=== PATIENT | female | born 1970 | race Caucasian/White ===

== ENCOUNTER 2017-11-08 11:07 | Observation (INO) | payer BC ==
[~2017-11-08] VITALS: Ht 160 cm; Wt 75.0 kg
[2017-11-08] VITALS (7 sets, daily range): BP systolic 95–170; BP diastolic 54–100; PULSE 68–82; RESP 16–20; TEMP 98–98.8; O2SAT 94–100
[~2017-11-08 11:07] MED LIST: CLIN150 PO; PRED10 PO; TRIA.1%T TOP
--- NOTE | 2017-11-08 11:27 | PD ---
HPI Chief Complaint: Syncope/Near-Syncope Time Seen by Provider: 11:24 Travel History International Travel<30 days: No Contact w/Intl Traveler<30days: No Traveled to known affect area: No History of Present Illness HPI 47-year-old female presents the emergency department with reported syncopal episode last evening witnessed by her boyfriend in the patient's home. She states she was speaking to him in the kitchen and reportedly passed out cold, for 2 minutes. Patient states no reported seizure activity. Patient does have history of left-sided chest and shoulder pain over the past week intermittently. Patient does have a history of CAD, with catheterization performed approximately 10 years ago, without stent placement and question of Prinzmetal's syndrome. Patient states she did hit her head and has a laceration to the right posterior scalp. The patient has a mild headache and has had some headaches over the past week. Patient denies drug or alcohol use. She currently feels normal. 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 She denies chest pain currently. She has no known drug allergies. [facility] Past Medical History Cardiovascular Problems: Yes (ANG[place]) Social History Alcohol Use: No Tobacco Use: No Allergies-Medications (Allergen,Severity, Reaction): Coded Allergies: No Known Allergies (Unverified Adverse Reaction, Unknown, 11/08/17) Reported Meds & Prescriptions Reported Meds & Active Scripts Active No Active Prescriptions or Reported Medications Review of Systems Except as stated in HPI: all other systems reviewed are Neg General / Constitutional: No: Fever Eyes: No: Visual changes HENT: No: Headaches Cardiovascular: No: Chest Pain or Discomfort Respiratory: No: Shortness of Breath Gastrointestinal: No: Abdominal Pain Genitourinary: No: Dysuria Musculoskeletal: No: Pain Skin: No Rash Neurologic: Positive: Syncope, Headache, No: Weakness Psychiatric: No: Depression Endocrine: No: Polydipsia Hematologic/Lymphatic: No: Easy Bruising Physical Exam Narrative GENERAL: Patient is ambulatory and in no obvious distress. SKIN: Warm and dry. Normal color. Normal Turgor. Patient is a 2 cm linear laceration to the right parietal region HEAD: Normocephalic. She has tenderness on the right parietal region adjacent to the laceration. There is moderate swelling in this area. EYES: Pupils equal and round. No scleral icterus. No injection or drainage. ENT: No nasal bleeding or discharge. Mucous membranes pink and moist. No dental injury. Pharynx is clear. Airway is patent. TMs are clear bilaterally. NECK: Trachea midline. No bony tenderness or step-off. Range of motion is full and nontender. CARDIOVASCULAR: Regular rate and rhythm. RESPIRATORY: No accessory muscle use. Clear to auscultation. Breath sounds equal bilaterally. GASTROINTESTINAL: Abdomen soft, non-tender, nondistended. Hepatic and splenic margins not palpable. MUSCULOSKELETAL: Extremities without clubbing, cyanosis, or edema. No obvious deformities. NEUROLOGICAL: Awake and alert. No obvious cranial nerve deficits. Motor grossly within normal limits. Five out of 5 muscle strength in the arms and legs. Normal speech. PSYCHIATRIC: Appropriate mood and affect; insight and judgment normal. Data Data Last Documented VS Vital Signs Date Time Temp Pulse Resp B/P (MAP) Pulse Ox O2 Delivery O2 Flow Rate FiO2 11/08/17 11:49 81 19 133/93 (106) 84 19 137/75 (95) 97 20 139/83 (101) 11/08/17 11:29 98 Room Air 11/08/17 11:13 98.6 Orders Orders Electrocardiogram (11/08/17 11:21) Complete Blood Count With Diff (11/08/17 11:21) Comprehensive Metabolic Panel (11/08/17 11:21) Magnesium (Mg) (11/08/17 11:21) Ckmb (Isoenzyme) Profile (11/08/17 11:21) Troponin I (11/08/17 11:21) Act Partial Throm Time (Ptt) (11/08/17 11:21) Prothrombin Time / Inr (Pt) (11/08/17 11:21) Urinalysis - C+S If Indicated (11/08/17 11:21) Chest, Single Ap (11/08/17 11:21) Ecg Monitoring (11/08/17 11:21) Iv Access Insert/Monitor (11/08/17 11:21) Oximetry (11/08/17 11:21) Meclizine (Antivert) (11/08/17 11:30) Ondansetron Inj (Zofran Inj) (11/08/17 11:30) Sodium Chloride 0.9% Flush (Ns Flush) (11/08/17 11:30) Orthostatic Vital Signs (11/08/17 11:21) Ct Brain W/O Iv Contrast(Rout) (11/08/17 11:21) Drug Screen, Random Urine (11/08/17 11:21) Alcohol (Ethanol) (11/08/17 11:21) Aspirin Chew (Aspirin Chew) (11/08/17 12:45) Nitroglycerin 2% Oint (Nitroglycerin 2% (11/08/17 12:45) Morphine Inj (Morphine Inj) (11/08/17 12:45) CKMB (11/08/17 11:46) CKMB% (11/08/17 11:46) Admit Order (Ed Use Only) (11/08/17 13:24) Labs Laboratory Tests Test 11/08/17 11:46 White Blood Count 8.3 TH/MM3 Red Blood Count 4.17 MIL/MM3 Hemoglobin 13.6 GM/DL Hematocrit 40.1 % Mean Corpuscular Volume 96.2 FL Mean Corpuscular Hemoglobin 32.7 PG Mean Corpuscular Hemoglobin Concent 34.0 % Red Cell Distribution Width 13.0 % Platelet Count 254 TH/MM3 Mean Platelet Volume 8.8 FL Neutrophils (%) (Auto) 55.7 % Lymphocytes (%) (Auto) 38.3 % Monocytes (%) (Auto) 5.0 % Eosinophils (%) (Auto) 0.6 % Basophils (%) (Auto) 0.4 % Neutrophils # (Auto) 4.6 TH/MM3 Lymphocytes # (Auto) 3.2 TH/MM3 Monocytes # (Auto) 0.4 TH/MM3 Eosinophils # (Auto) 0.1 TH/MM3 Basophils # (Auto) 0.0 TH/MM3 CBC Comment DIFF FINAL Differential Comment Prothrombin Time 11.4 SEC Prothromb Time International Ratio 1.1 RATIO Activated Partial Thromboplast Time 25.4 SEC Blood Urea Nitrogen 13 MG/DL Creatinine 0.88 MG/DL Random Glucose 142 MG/DL Total Protein 7.3 GM/DL Albumin 4.0 GM/DL Calcium Level 9.6 MG/DL Magnesium Level 2.3 MG/DL Alkaline Phosphatase 130 U/L Aspartate Amino Transf (AST/SGOT) 18 U/L Alanine Aminotransferase (ALT/SGPT) 12 U/L Total Bilirubin 0.4 MG/DL Sodium Level 139 MEQ/L Potassium Level 3.5 MEQ/L Chloride Level 104 MEQ/L Carbon Dioxide Level 27.1 MEQ/L Anion Gap 8 MEQ/L Estimat Glomerular Filtration Rate 69 ML/MIN Total Creatine Kinase 307 U/L Creatine Kinase MB 4.1 NG/ML Creatine Kinase MB % 1.3 % Troponin I LESS THAN 0.02 NG/ML Ethyl Alcohol Level LESS THAN 3 MG/DL MDM Medical Decision Making Medical Screen Exam Complete: Yes Emergency Medical Condition: Yes Medical Record Reviewed: Yes Differential Diagnosis Syncopal event. Head contusion. Laceration. Possible seizure. Cardiac syndrome. CA. Narrative Course Patient is currently medically stable at time of exam. CT of the head is ordered as well as chest x-ray. EKG is ordered showing rhythm with apparently old lateral and inferior myocardial infarctions with ranges. This was reviewed with Dr. Marcus. This does not appear acute. Labs are ordered including CBC, CMP, cardiac panel, urinalysis, urine drug screen, and serum alcohol levels. Patient states her chest feels tight, and rates her pain at 6 out of 10. Patient is given 324 mg aspirin by mouth as well as 2 mg morphine IV as well as 1 inch of nitroglycerin paste topically. CT shows no acute process. Scalp laceration is requested not to be repaired by the patient. It shows no signs of bleeding currently. CBC is unremarkable. Coagulation studies are unremarkable. Chemistries show random glucose 142, GFR 69, alkaline phosphatase is elevated at 1:30, creatinine is 307, CK-MB is 4.1, however her first troponin is less than 0.02. Patient states she is pain-free after the above treatment. Urine is still pending but the patient will be admitted to the chest pain center for further evaluation and treatment. Diagnosis Primary Impression: Chest pain at rest Additional Impression: Syncopal episodes Qualified Codes: R55 - Syncope and collapse Admitting Information Admitting Physician Requests: Observation Scripts No Active Prescriptions or Reported Meds Condition: Stable Chris Robison Nov 08, 2017 11:26
[2017-11-08] MEDS ORDERED: SODIUM CHLORIDE 0.9% FLUSH 10 ML FLUSH IVF PRN (11:30)
[2017-11-08] MEDS ORDERED: MECLIZINE HCL 25 MG TAB PO ONE (11:30)
[2017-11-08] MEDS ORDERED: ONDANSETRON HCL 4 MG/2 ML VIAL IVP ONE (11:30)
--- NOTE | 2017-11-08 11:55 | RADRPT ---
EXAM DATE/TIME: 11/08/2017 11:26 [facility] COMPARISON: No previous studies available for comparison. INDICATIONS : Syncopal episode. Patient passed out last night. MEDICAL HISTORY : Hypertension. SURGICAL HISTORY : None. ENCOUNTER: Initial ACUITY: 2 days PAIN SCORE: 0/10 LOCATION: Bilateral chest FINDINGS: A single view of the chest demonstrates the lungs to be symmetrically aerated without evidence of mas s, infiltrate or effusion. The cardiomediastinal contours are unremarkable. Osseous structures are intact. CONCLUSION: Normal examination. Dara Cabral MD on November 08, 2017 at 11:52 Board Certified Radiologist. This report was verified electronically.
--- NOTE | 2017-11-08 12:34 | RADRPT ---
EXAM DATE/TIME: 11/08/2017 12:01 [facility] COMPARISON: No previous studies available for comparison. INDICATIONS : Syncopal episode last night, hit back of head, dizziness. RADIATION DOSE: 35.34 CTDIvol (mGy) MEDICAL HISTORY : Cardiovascular disease. Carcinoma, breast. SURGICAL HISTORY : Coronary artery stent. ENCOUNTER: Initial ACUITY: 1 day PAIN SCALE: 3/10 LOCATION: Bilateral occipital TECHNIQUE: Multiple contiguous axial images were obtained of the head. Using automated exposure control and adj ustment of the mA and/or kV according to patient size, radiation dose was kept as low as reasonably a chievable to obtain optimal diagnostic quality images. DICOM format image data is available electro nically for review and comparison. FINDINGS: CEREBRUM: The ventricles are normal for age. No evidence of midline shift, mass lesion, hemorrhage or acute in farction. No extra-axial fluid collections are seen. POSTERIOR FOSSA: The cerebellum and brainstem are intact. The 4th ventricle is midline. The cerebellopontine angle i s unremarkable. EXTRACRANIAL: The visualized portion of the orbits is intact. SKULL: The calvaria is intact. No evidence of skull fracture. CONCLUSION: No acute disease. Dara Cabral MD on November 08, 2017 at 12:31 Board Certified Radiologist. This report was verified electronically.
[2017-11-08 12:37] LABS: AUTOMATED NEUTROPHIL # 4.6 TH/MM3 (1.8-7.7); BASOPHIL % 0.4 % (0.0-2.0); EOSINOPHIL # 0.1 TH/MM3 (0-0.4); EOSINOPHIL % 0.6 % (0.0-4.0); HEMATOCRIT 40.1 % (35.0-46.0); HEMOGLOBIN 13.6 GM/DL (11.6-15.3); LYMPH % 38.3 % (9.0-44.0); LYMPHOCYTE # 3.2 TH/MM3 (1.0-4.8); MEAN CELL VOLUME 96.2 FL (80.0-100.0); MEAN CORPUSCULAR HEMOGLOBIN 32.7 PG (27.0-34.0); MEAN PLATELET VOLUME 8.8 FL (7.0-11.0); MONOCYTE # 0.4 TH/MM3 (0-0.9); NEUT % 55.7 % (16.0-70.0); PLATELET COUNT 254 TH/MM3 (150-450); RED BLOOD COUNT 4.17 MIL/MM3 (4.00-5.30); WHITE BLOOD COUNT 8.3 TH/MM3 (4.0-11.0)
[2017-11-08 12:44] LABS: INTERNATIONAL NORMALIZED RATIO 1.1 RATIO; PROTHROMBIN TIME - PATIENT 11.4 SEC (9.8-11.6)
[2017-11-08] MEDS ORDERED: ASPIRIN 81 MG CHEW TAB PO ONE (12:45)
[2017-11-08] MEDS ORDERED: MORPHINE SULFATE 2 MG/ML INJ IV PUSH ONE (12:45)
[2017-11-08] MEDS ORDERED: NITROGLYCERIN 2% OINT 1 GM PACKET TOP ONE (12:45)
[2017-11-08 12:50] LABS: AST (GOT) 18 U/L (15-37); BICARBONATE 27.1 MEQ/L (21.0-32.0); BLOOD UREA NITROGEN 13 MG/DL (7-18); CALCIUM 9.6 MG/DL (8.5-10.1); CHLORIDE 104 MEQ/L (98-107); CREATININE 0.88 MG/DL (0.50-1.00); GLOMERULAR FILTRATION RATE 69 ML/MIN (>89); GLUCOSE,RANDOM 142 MG/DL (74-106); MAGNESIUM 2.3 MG/DL (1.5-2.5); SODIUM (NA) 139 MEQ/L (136-145)
[2017-11-08 12:56] LABS: ALKALINE PHOSPHATASE 130 U/L (45-117); ALT (GPT) 12 U/L (10-53); TOTAL BILIRUBIN ADULT 0.4 MG/DL (0.2-1.0); TOTAL PROTEIN 7.3 GM/DL (6.4-8.2); TROPONIN I LESS THAN 0.02 NG/ML (0.02-0.05)
[2017-11-08] MEDS ORDERED: ACETAMINOPHEN 500 MG CPLT PO PRN (13:45)
[2017-11-08] MEDS ORDERED: NITROGLYCERIN 0.4 MG SL 25 TABS/BTL SL PRN (13:45)
[2017-11-08] MEDS ORDERED: ONDANSETRON HCL 4 MG/2 ML VIAL IV PUSH PRN (13:45)
--- NOTE | 2017-11-08 14:27 | HHI.HP ---
HPI Primary Care Physician No Primary Care Physician Chief Complaint Chest pain History of Present Illness 47-year-old female with history of coronary artery disease and Prinzmetal's syndrome presents to ER for further evaluation of syncope episode and chest pain. Onset syncope episode last evening. Reports talking with boyfriend then suddenly "passed out." Reportedly "out for at least 2 minutes." No advance warning prior to syncopal episode. No seizure activity reported. No incontinence. Upon awakening she was aware of her surroundings quickly. No chest pain prior to syncopal episode. No history of seizures. Endorses one similar episode approx. one year ago while laying in bed. Never followed up with a PCP after event due to lack of insurance. Onset of chest pain x1 week. Location substernal. Characterized as "heaviness and tightness." Radiation to left shoulder. Duration "brief, maybe a few minutes." Associated symptoms included mild dyspnea and diaphoresis. No nausea or vomiting. No known precipitating or relieving factors. Reporting daily intermittent chest pain episodes x1 week. Endorsees similar chest pain prior to diagnoses of Prinzmetal's syndrome in 2007. Currently chest pain free. 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 ([place]loria [place]) Review of Systems General: No fatigue,weakness, fever, chills, recent illness, or change in appetite. Has been in her general state of health. HEENT: No ZHANG, no vision changes, no nasal congestion or drainage, no dysphasia CV: As stated above. No current CP or pressure. Occasional palpitations felt to be "regular." No prior chest discomfort since 2007 RESP: No SOB, cough, wheeze, or recent URI. Current smoker. GI: No nausea, vomiting, bowel changes, diarrhea, constipation, pain, distention , melena, or blood in the stool. No unintentional weight gain or weight loss. : No dysuria, urgency, frequency EXT: No lower leg edema, no paraesthesias MS: No discomfort, change in ROM, injury, or recent trauma. NEURO: No history of seizures, change in memory, dizziness, difficulty with balance, or motor/sensory deficits. PSYCH: No anxiety, depression SKIN: No rashes, no concerning lesions (Gloria North) Past Family Social History Allergies: Coded Allergies: No Known Allergies (Unverified Allergy, Unknown, 11/08/17) Past Medical History CAD Reported Medications Reported Meds & Active Scripts Active No Active Prescriptions or Reported Medications Active Ordered Medications Current Medications Medications (Trade) Dose Ordered Sig/Abrahan Route Start Time Stop Time Status Last Admin (NS Flush) 2 ml UNSCH PRN IVF 11/08/17 11:30 (NS Flush) 2 ml BID IV FLUSH 11/08/17 21:00 (Tylenol) 500 mg Q4H PRN PO 11/08/17 13:45 (Zofran Inj) 4 mg Q6H PRN IV PUSH 11/08/17 13:45 (Nitrostat Sl) 0.4 mg Q5M PRN SL 11/08/17 13:45 (Aspirin) 325 mg DAILY PO 11/09/17 09:00 Family History Noncontributory for early onset cardiovascular disease. Social History Known CAD. No known hypertension, hyperlipidemia, or diabetes. Current tobacco user, 1 pack/day. Occasional glass of wine. Denies any illegal drug use. Lives with boyfriend. Works as a store assistant. Past cardiac testing No recent stress testing. Does not follow with sand technician. 2008 Cardiac catheterization ([place], [place]) Reports mild blockage not large enough for intervention, however reports carrying around "a card with a coil on it" for awhile. Diagnoses with Prinzmetal's syndrome 2008. (Gloria North) Physical Exam Vital Signs Vital Signs Date Time Temp Pulse Resp B/P (MAP) Pulse Ox O2 Delivery O2 Flow Rate FiO2 11/08/17 11:49 81 19 133/93 (106) 84 19 137/75 (95) 97 20 139/83 (101) 11/08/17 11:29 (123) 98 Room Air 11/08/17 11:13 98.6 82 16 170/100 (123) 100 Physical Exam GENERAL: Alert WN, WD, NAD, pleasant HEAD: NC, AT EYES: Sclera clear, conjunctiva without injection, pupils equal and round ENT: Mucous membranes pink and moist, no nasal discharge or bleeding NECK: Supple, no masses, trachea midline CV: RRR, without murmur, rub, gallop, no JVD, S1-S2 no S3-S4. No carotid bruits RESP: Clear lungs throughout bilateral, no crackles, wheeze, rhonchi, symmetrical chest rise, nonlabored, able to speak in full sentences ABD: Soft, NT, ND, no masses, positive bowel tones BACK: No CVAT, no scoliosis EXT: Pulses +24, no dependent edema MS: Normal tone 4 extremities, nontender, no obvious deformities, full range of motion NEURO: CN II through CN XII grossly intact, motor strength 5/5, gait WNL PSYCH: A+O 3, pleasant affect, appropriate speech, appropriate mood and affect , insight and judgment SKIN: Normal turgor, normal texture, no lesions, no rashes, brisk cap refill, even hair distribution Laboratory Laboratory Tests Test 11/08/17 11:46 White Blood Count 8.3 Red Blood Count 4.17 Hemoglobin 13.6 Hematocrit 40.1 Mean Corpuscular Volume 96.2 Mean Corpuscular Hemoglobin 32.7 Mean Corpuscular Hemoglobin Concent 34.0 Red Cell Distribution Width 13.0 Platelet Count 254 Mean Platelet Volume 8.8 Neutrophils (%) (Auto) 55.7 Lymphocytes (%) (Auto) 38.3 Monocytes (%) (Auto) 5.0 Eosinophils (%) (Auto) 0.6 Basophils (%) (Auto) 0.4 Neutrophils # (Auto) 4.6 Lymphocytes # (Auto) 3.2 Monocytes # (Auto) 0.4 Eosinophils # (Auto) 0.1 Basophils # (Auto) 0.0 CBC Comment DIFF FINAL Differential Comment Prothrombin Time 11.4 Prothromb Time International Ratio 1.1 Activated Partial Thromboplast Time 25.4 Blood Urea Nitrogen 13 Creatinine 0.88 Random Glucose 142 Total Protein 7.3 Albumin 4.0 Calcium Level 9.6 Magnesium Level 2.3 Alkaline Phosphatase 130 Aspartate Amino Transf (AST/SGOT) 18 Alanine Aminotransferase (ALT/SGPT) 12 Total Bilirubin 0.4 Sodium Level 139 Potassium Level 3.5 Chloride Level 104 Carbon Dioxide Level 27.1 Anion Gap 8 Estimat Glomerular Filtration Rate 69 Total Creatine Kinase 307 Creatine Kinase MB 4.1 Creatine Kinase MB % 1.3 Troponin I LESS THAN 0.02 Ethyl Alcohol Level LESS THAN 3 (Gloria North) Result Diagram: 11/08/17 1146 11/08/17 1146 Imaging Last [address] 11/08/17 1121 Signed Impressions: Service Date/Time: Wednesday, November 08, 2017 12:01 - CONCLUSION: No acute disease. Dara Cabral MD Chest X-Ray 11/08/17 1121 Signed Impressions: Service Date/Time: Wednesday, November 08, 2017 11:26 - CONCLUSION: Normal examination. Dara Cabral MD Course EKG NSR, normal axis, no st t segment changes, Q waves inferior may be a respiratory variant or old infarct (Gloria North) Caprini VTE Risk Assessment Caprini VTE Risk Assessment: No/Low Risk (score <= 1) Caprini Risk Assessment Model Point Value = 1 Point Value = 2 Point Value = 3 Point Value = 5 Age 41-60 Minor surgery BMI > 25 kg/m2 Swollen legs Varicose veins or History of unexplained or recurrent spontaneous Oral contraceptives or hormone replacement Sepsis (< 1 month) Serious lung disease, including pneumonia (< 1 month) Abnormal pulmonary function Acute myocardial infarction Congestive heart failure (< 1 month) History of inflammatory bowel disease Medical patient at bed rest Age 61-74 Arthroscopic surgery Major open surgery (> 45 min) Laparoscopic surgery (> 45 min) Malignancy Confined to bed (> 72 hours) Immobilizing plaster cast Central venous access Age >= 75 History of VTE Family history of VTE Factor V Leiden Prothrombin [id number] Lupus anticoagulant Anticardiolipin antibodies Elevated serum homocysteine Heparin-induced thrombocytopenia Other congenital or acquired thrombophilia Stroke (< 1 month) Elective arthroplasty Hip, pelvis, or leg fracture Acute spinal cord injury (< 1 month) Prophylaxis Regimen Total Risk Factor Score Risk Level Prophylaxis Regimen 0-1 Low Early ambulation 2 Moderate Order ONE of the following: *Sequential Compression Device (SCD) *Heparin 5000 units SQ BID 3-4 Higher Order ONE of the following medications: *Heparin 5000 units SQ TID *Enoxaparin/Lovenox 40 mg SQ daily (WT < 150 kg, CrCl > 30 mL/min) *Enoxaparin/Lovenox 30 mg SQ daily (WT < 150 kg, CrCl > 10-29 mL/min) *Enoxaparin/Lovenox 30 mg SQ BID (WT < 150 kg, CrCl > 30 mL/min) AND/OR *Sequential Compression Device (SCD) 5 or more Highest Order ONE of the following medications: *Heparin 5000 units SQ TID (Preferred with Epidurals) *Enoxaparin/Lovenox 40 mg SQ daily (WT < 150 kg, CrCl > 30 mL/min) *Enoxaparin/Lovenox 30 mg SQ daily (WT < 150 kg, CrCl > 10-29 mL/min) *Enoxaparin/Lovenox 30 mg SQ BID (WT < 150 kg, CrCl > 30 mL/min) AND *Sequential Compression Device (SCD) (Gloria North) Assessment and Plan Assessment and Plan #1 Chest pain-admitted to chest pain center. Rule out with 3 sets of EKGs, cardiac enzymes, and monitor on telemetry. Will be seen and evaluated by Dr. Nick Mcdonald. Discussed likelihood of completing exercise testing later this afternoon, or if nuclear imaging required, lexiscan would be completed in morning. Patient drank caffeine recently. Further disposition to follow. #2 Syncope episode-continue to monitor on telemetry, no history of seizure disorder #3 Tobacco use-strongly encouraged and stressed the importance of tobacco cessation. Instructed to quit smoking. Encouraged to establish with a primary care provider and local sand technician for preventive and medical management. 0 Notified by RN patient requesting Morphine IV to be taken with nitro PRN. RN made patient aware morphine will not be ordered at this time. 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 Will plan lexiscan tomorrow. Smoking cessation discussed (Nick Mcdonald MD) Gloria North Nov 08, 2017 14:27 Nick Mcdonald MD Nov 08, 2017 15:17
[2017-11-08 17:11] LABS: TROPONIN I LESS THAN 0.02 NG/ML (0.02-0.05)
[2017-11-08 17:40] LABS: BACTERIA, URINE MANY /hpf; BILIRUBIN, URINE NEG (NEG); BLOOD, URINE NEG (NEG); CALCIUM OXALATE CRYSTALS,URINE OCC /hpf; GLUCOSE,URINE NEG (NEG); KETONE, URINE TRACE mg/dL (NEG); MUCUS URINE MANY /lpf (OCC); NITRITE,URINE POS (NEG); PH, URINE 5.5 (5.0-8.5); SQUAMOUS EPITHELIAL CELL URINE 7 /hpf (0-5); URINE COLOR YELLOW (YELLW/STRAW); URINE LEUKOCYTE ESTERASE SMALL (NEG)
[2017-11-08 19:03] LABS: TROPONIN I LESS THAN 0.02 NG/ML (0.02-0.05)
[2017-11-09] MEDS: SODIUM CHLORIDE 0.9% FLUSH 10 ML FLUSH IV FLUSH SCH ×2 (00:18→08:28)
[2017-11-09 03:32] VITALS: BP 112/68; PULSE 66; RESP 18; TEMP 97.8; O2SAT 99
--- NOTE | 2017-11-09 07:33 | PD.CARD.PN ---
Subjective Subjective Remarks No complaints overnight. Objective Medications Current Medications Medications (Trade) Dose Ordered Sig/Abrahan Route Start Time Stop Time Status Last Admin (NS Flush) 2 ml UNSCH PRN IVF 11/08/17 11:30 (NS Flush) 2 ml BID IV FLUSH 11/08/17 21:00 11/09/17 00:18 (Tylenol) 500 mg Q4H PRN PO 11/08/17 13:45 (Zofran Inj) 4 mg Q6H PRN IV PUSH 11/08/17 13:45 (Nitrostat Sl) 0.4 mg Q5M PRN SL 11/08/17 13:45 (Aspirin) 325 mg DAILY PO 11/09/17 09:00 Vital Signs / I&O Vital Signs Date Time Temp Pulse Resp B/P (MAP) Pulse Ox O2 Delivery O2 Flow Rate FiO2 11/09/17 03:32 97.8 66 18 112/68 (83) 99 11/08/17 23:41 98.0 77 18 95/54 (68) 94 11/08/17 19:37 98.8 70 18 130/80 (97) 98 11/08/17 17:11 98.3 107/64 (78) 95 11/08/17 15:55 98.0 68 18 104/64 (77) 98 11/08/17 11:49 81 19 133/93 (106) 84 19 137/75 (95) 97 20 139/83 (101) 11/08/17 11:29 (123) 98 Room Air 11/08/17 11:13 98.6 82 16 170/100 (123) 100 I/O 11/08/17 11/08/17 11/08/17 11/09/17 11/09/17 11/09/17 07:00 15:00 23:00 07:00 15:00 23:00 Intake Total 240 ml Balance 240 ml Intake Oral 240 ml # Voids 2 # Bowel Movements 0 Physical Exam Alert, no acute distress. RRR without murmur, lungs clear throughout Laboratory Laboratory Tests Test 11/08/17 11:46 11/08/17 15:30 11/08/17 16:35 11/08/17 18:00 White Blood Count 8.3 TH/MM3 Red Blood Count 4.17 MIL/MM3 Hemoglobin 13.6 GM/DL Hematocrit 40.1 % Mean Corpuscular Volume 96.2 FL Mean Corpuscular Hemoglobin 32.7 PG Mean Corpuscular Hemoglobin Concent 34.0 % Red Cell Distribution Width 13.0 % Platelet Count 254 TH/MM3 Mean Platelet Volume 8.8 FL Neutrophils (%) (Auto) 55.7 % Lymphocytes (%) (Auto) 38.3 % Monocytes (%) (Auto) 5.0 % Eosinophils (%) (Auto) 0.6 % Basophils (%) (Auto) 0.4 % Neutrophils # (Auto) 4.6 TH/MM3 Lymphocytes # (Auto) 3.2 TH/MM3 Monocytes # (Auto) 0.4 TH/MM3 Eosinophils # (Auto) 0.1 TH/MM3 Basophils # (Auto) 0.0 TH/MM3 CBC Comment DIFF FINAL Differential Comment Prothrombin Time 11.4 SEC Prothromb Time International Ratio 1.1 RATIO Activated Partial Thromboplast Time 25.4 SEC Blood Urea Nitrogen 13 MG/DL Creatinine 0.88 MG/DL Random Glucose 142 MG/DL Total Protein 7.3 GM/DL Albumin 4.0 GM/DL Calcium Level 9.6 MG/DL Magnesium Level 2.3 MG/DL Alkaline Phosphatase 130 U/L Aspartate Amino Transf (AST/SGOT) 18 U/L Alanine Aminotransferase (ALT/SGPT) 12 U/L Total Bilirubin 0.4 MG/DL Sodium Level 139 MEQ/L Potassium Level 3.5 MEQ/L Chloride Level 104 MEQ/L Carbon Dioxide Level 27.1 MEQ/L Anion Gap 8 MEQ/L Estimat Glomerular Filtration Rate 69 ML/MIN Total Creatine Kinase 307 U/L 266 U/L 278 U/L Creatine Kinase MB 4.1 NG/ML 3.2 NG/ML 2.9 NG/ML Creatine Kinase MB % 1.3 % 1.2 % 1.0 % Troponin I LESS THAN 0.02 NG/ML LESS THAN 0.02 NG/ML LESS THAN 0.02 NG/ML Ethyl Alcohol Level LESS THAN 3 MG/DL Urine Color YELLOW Urine Turbidity HAZY Urine pH 5.5 Urine Specific [place] 1.033 Urine Protein 30 mg/dL Urine Glucose (UA) NEG mg/dL Urine Ketones TRACE mg/dL Urine Occult Blood NEG Urine Nitrite POS Urine Bilirubin NEG Urine Urobilinogen LESS THAN 2.0 MG/DL Urine Leukocyte Esterase SMALL Urine RBC 2 /hpf Urine WBC 13 /hpf Urine Squamous Epithelial Cells 7 /hpf Urine Calcium Oxalate Crystals OCC /hpf Urine Bacteria MANY /hpf Urine Mucus MANY /lpf Microscopic Urinalysis Comment CULTURE INDICATED Urine Opiates Screen POS Urine Barbiturates Screen NEG Urine Amphetamines Screen NEG Urine Benzodiazepines Screen NEG Urine Cocaine Screen NEG Urine Cannabinoids Screen NEG Imaging Last [address] 11/08/17 1121 Signed Impressions: Service Date/Time: Wednesday, November 08, 2017 12:01 - CONCLUSION: No acute disease. Dara Cabral MD Chest X-Ray 11/08/17 1121 Signed Impressions: Service Date/Time: Wednesday, November 08, 2017 11:26 - CONCLUSION: Normal examination. Dara Cabral MD Assessment and Plan Assessment and Plan #1 Chest pain-admitted to chest pain center. Ruled out with 3 sets of EKGs, cardiac enzymes, and monitor on telemetry. Previously seen by Dr. Nick Mcdonald. No complaints of chest pain overnight. Proceed with planned Lexiscan this morning. If unremarkable, discharge home this afternoon. #2 Syncope episode-continue to monitor on telemetry, no further syncopal episodes #3 Tobacco use-strongly encouraged and stressed the importance of tobacco cessation. Instructed to quit smoking. Gloria North Nov 09, 2017 07:33
[2017-11-09 08:05] VITALS: PULSE 60
[2017-11-09 08:14] VITALS: BP 132/73; PULSE 66; RESP 18; TEMP 97.7; O2SAT 97
[2017-11-09] MEDS ORDERED: ASPIRIN 325 MG TAB PO SCH (09:00)
[2017-11-09 09:50] VITALS: O2SAT 97
[2017-11-09] MEDS ORDERED: REGADENOSON INJ 0.4 MG/5 ML SYR ONE (09:51)
--- NOTE | 2017-11-09 11:06 | RADRPT ---
EXAM DATE/TIME: 11/09/2017 09:46 [place] COMPARISON: No previous studies available for comparison. INDICATIONS : Substernal chest pain radiating to left arm with dyspnea. Syncope. Angina. Coronary artery disease. DOSE: 25.4 mCi Tc99m Myoview at stress. 8.5 mCi Tc99m Myoview at rest. 0.4 mg Lexiscan STRESS SYMPTOMS: Dyspnea and flushed. EJECTION FRACTION: > 70% MEDICAL HISTORY : Hypertension. Carcinoma, breast. Myocardial infarction. Prinzmetals syndrome. SURGICAL HISTORY : Tubal ligation. Lumpectomy. ENCOUNTER: Initial ACUITY: 1 day PAIN SCALE: 5/10 LOCATION: Substernal chest TECHNIQUE: The patient underwent pharmacologic stress with infusion of prescribed dose. Continuous ECG tracing was monitored during stress. Gated SPECT imaging was performed after stress and conventional SPECT i maging was performed at rest. The examination was performed on a SPECT/CT scanner, both attenuation and non-corrected datasets were reviewed. FINDINGS: DISTRIBUTION: The maximum perfused segment at stress is in the anterior lateral wall. PERFUSION STUDY: The pattern of perfusion at stress is within normal limits. GATED STUDY: There is intact wall motion and thickening without hypokinetic or dyskinetic segments. CONCLUSION: Normal exam. No evidence of reversible or fixed defects identified. Normal ejection fraction. RISK CATEGORY: Low risk Dara Cabral MD on November 09, 2017 at 11:00 Board Certified Radiologist. This report was verified electronically.
--- NOTE | 2017-11-09 11:29 | HHI.DCPOC ---
Discharge Care Plan Diagnosis: (1) Atypical chest pain (2) Syncopal episodes Goals to Promote Your Health * To prevent worsening of your condition and complications * To maintain your health at the optimal level Directions to Meet Your Goals Take your medications as prescribed Follow your dietary instruction Follow activity as directed Keep your appointments as scheduled Take your immunizations and boosters as scheduled If your symptoms worsen call your PCP, if no PCP go to Urgent Care Center or Emergency Room Smoking is Dangerous to Your Health. Avoid second hand smoke Call the 24-hour hour crisis hotline for domestic abuse at [facility] Nov 09, 2017 11:29
--- NOTE | 2017-11-09 12:10 | EKG ---
Date Performed: 11/08/2017 Time Performed: 18:04:49 PTAGE: 47 years EKG: Sinus rhythm POSSIBLE INFERIOR MYOCARDIAL INFARCTION ABNORMAL ECG NO SIG CHANGE PREVIOUS TRACING : 11/08/2017 18.03 DOCTOR: Teto Bain Interpretating Date/Time 11/09/2017 12:07:59
--- NOTE | 2017-11-09 12:11 | EKG ---
Date Performed: 11/08/2017 Time Performed: 16:23:58 PTAGE: 47 years EKG: Sinus rhythm POSSIBLE INFERIOR MYOCARDIAL INFARCTION BORDERLINE ECG NO CHANGE PREVIOUS TRACING : 11/08/2017 11.38 DOCTOR: Teto Bain Interpretating Date/Time 11/09/2017 12:08:13
--- NOTE | 2017-11-09 12:12 | TR ---
Date Performed: 11/09/2017 Time Performed: 10:04:50 DOCTOR: Teto Bain DRUG LIST: CLINICAL HISTORY: CHEST PAIN REASON FOR TEST: CHEST PAIN REASON FOR ENDING: OBSERVATION: CONCLUSION: Lexiscan stress test was performed under standard four minute protocol. Radionuclide was injected one minute prior to ending the test. No electrocardiographic abormalities were present to suggest ischemia. Nuclear imaging and interpretation are pending. COMMENTS:
--- NOTE | 2017-11-09 12:12 | EKG ---
Date Performed: 11/08/2017 Time Performed: 11:38:21 PTAGE: 47 years EKG: Sinus rhythm POSSIBLE LATERAL MYOCARDIAL INFARCTION PROBABLE INFERIOR MYOCARDIAL INFARCTION ABNORMAL ECG WARNING: DATA QUALITY MAY AFFECT INTERPRETATION NO PREVIOUS TRACING DOCTOR: Teto Bain Interpretating Date/Time 11/09/2017 12:09:15
== END 2017-11-09 12:58 | disposition home or self-care (01) ==
LOC: NEPC 11:07 → NEDA 13:26 → NEPFCDU 17:18
PROVIDERS: ADMIT Internal Medicine Cardiovascular Disease; ATTEND Internal Medicine Cardiovascular Disease
DX: R07.89 Other chest pain (principal); R55 Syncope and collapse; N39.0 Urinary tract infection, site not specified; B96.20 Unspecified Escherichia coli [E. coli] as the cause of diseases classified elsewhere; F17.200 Nicotine dependence, unspecified, uncomplicated; S01.01XA Laceration without foreign body of scalp, initial encounter; R74.8 Abnormal levels of other serum enzymes; I25.10 Atherosclerotic heart disease of native coronary artery without angina pectoris; R94.31 Abnormal electrocardiogram [ECG] [EKG]; Z95.5 Presence of coronary angioplasty implant and graft
CPT/HCPCS: 70450; 71045; 78452; 80053; 80307; 81001; 82550; 82552; 83735; 84484; 85025; 85610; 85730; 87077; 87086; 87186; 93005; 93017; 96374; 96375; 99285; A9502; G0378; J2270; J2405; J2785